=== PATIENT | male | born 1970 | race Caucasian/White ===

== ENCOUNTER 2018-04-13 05:39 | Outpatient (CLI) | payer BC ==
[~2018-04-13] VITALS: Ht 177.8 cm; Wt 113.4 kg
[2018-04-13] MEDS ORDERED: LISI-552 PO (12:32)
[2018-04-13] MEDS ORDERED: FURO20TA4 PO (12:32)
[2018-04-16] MEDS ORDERED: DOCU-143 PO (09:52)
[2018-04-16] MEDS ORDERED: ACHD5005 PO (09:52)
== END 2018-04-13 12:39 | disposition home or self-care (01) ==
LOC: PREOP 05:39
PROVIDERS: ATTEND Surgery
DX: Z01.818 Encounter for other preprocedural examination (principal)

== ENCOUNTER 2018-04-16 07:54 | Day surgery (SDC) | payer BC ==
[~2018-04-16] VITALS: Ht 177.8 cm; Wt 113.4 kg
[~2018-04-16 07:54] MED LIST: FURO20TA4 PO; LISI-552 PO
[2018-04-16] MEDS ORDERED: CLINDAMYCIN 600 MG/50 ML IVPB 50 ML IV ONE (08:00)
--- NOTE | 2018-04-16 08:01 | Progress Note-Pre Operative ---
Pre-Operative Progress Note H&P Reviewed The H&P was reviewed, patient examined and no changes noted. Date Seen by Provider: Apr 16, 2018 Time Seen by Provider: 08:01 Date H&P Reviewed: Apr 16, 2018 Time H&P Reviewed: 08:01 Pre-Operative Diagnosis: symptomatic cholelithiasis MELINA CABRALES DO Apr 16, 2018 08:01
[2018-04-16] MEDS ORDERED: BUPIVACAINE 0.5% 30 ML (SENSORCAINE) VIAL ONE (08:16)
[2018-04-16] MEDS ORDERED: LIDOCAINE 1% INJ 20 ML 20 ML VIAL ONE (08:16)
[2018-04-16] MEDS: LACTATED RINGERS 1,000 ML IV PRN ×2 (08:22→09:45)
[2018-04-16 08:33] LABS: BASOPHILS % (AUTO) 0 % (0-10); EOSINOPHILS # (AUTO) 0.1 10^3/uL (0.0-0.3); EOSINOPHILS % (AUTO) 2 % (0-10); HEMATOCRIT 45 % (40-54); HEMOGLOBIN 15.6 G/DL (13.3-17.7); LYMPHOCYTES # (AUTO) 1.5 X 10^3 (1.0-4.0); LYMPHOCYTES % (AUTO) 27 % (12-44); MEAN CORPUSCULAR HEMOGLOBIN 30 PG (25-34); MEAN CORPUSCULAR HGB CONC 35 G/DL (32-36); MEAN CORPUSCULAR VOLUME 87 FL (80-99); MEAN PLATELET VOLUME 10.5 FL (7.4-10.4); MONOCYTES # (AUTO) 0.5 X 10^3 (0.0-1.0); MONOCYTES % (AUTO) 9 % (0-12); NEUTROPHILS # (AUTO) 3.6 X 10^3 (1.8-7.8); NEUTROPHILS % (AUTO) 62 % (42-75); PLATELET COUNT 148 10^3/uL (130-400); RED BLOOD COUNT 5.16 10^6/uL (4.35-5.85); RED CELL DISTRIBUTION WIDTH 14.4 % (10.0-14.5); WHITE BLOOD COUNT 5.7 10^3/uL (4.3-11.0)
[2018-04-16] MEDS ORDERED: DEXAMETHASONE 10 MG/ML (DECADRON) 1 ML VIAL ONE (08:37)
[2018-04-16] MEDS ORDERED: proPOfol 200 MG/20 ML (DIPRIVAN) VIAL IV ONE (08:37)
[2018-04-16] MEDS ORDERED: ONDANSETRON 4 MG/2 ML (SDV) Z0FRAN ONE (08:37)
[2018-04-16] MEDS ORDERED: LIDOCAINE PF 2% 5 ML (XYLOCAINE) VIAL ONE (08:37)
[2018-04-16] MEDS ORDERED: ROCURONIUM 10 MG/ML 5 ML SYRINGE IV ONE ×2 (08:37→10:02)
[2018-04-16] MEDS ORDERED: MIDAZOLAM 2 MG/2 ML (VERSED) VIAL ONE (08:38)
[2018-04-16] MEDS ORDERED: fentaNYL INJECTION 100 MCG/2 ML AMP ONE (08:38)
[2018-04-16 08:45] VITALS: BP 149/83
[2018-04-16] MEDS ORDERED: SEVOFLURANE (ULTANE) 15 ML INHAL SOLN ONE (09:32)
[2018-04-16] MEDS ORDERED: DOCU-143 PO (09:52)
[2018-04-16] MEDS ORDERED: ACHD5005 PO (09:52)
--- NOTE | 2018-04-16 09:52 | Progress Note-Post Operative ---
Post-Operative Progess Note Surgeon (s)/Senior Software Manager (s) Surgeon MELINA CABRALES DO Senior Software Manager: Dr. Sosa Pre-Operative Diagnosis symptomatic cholelithiasis Post-Operative Diagnosis same Procedure & Operative Findings Date of Procedure 04/16/18 Procedure Performed/Findings lap kushal c ioc Anesthesia Type gen Estimated Blood Loss Estimated blood loss (mL): min Specimens/Packing Specimens Removed gallbladder MELINA CABRALES DO Apr 16, 2018 09:52
--- NOTE | 2018-04-16 09:53 | Discharge Inst-Simple/Standard ---
Discharge Inst-Standard Discharge Medications New, Converted or Re-Newed RX: RX on Chart Patient Instructions/Follow Up Plan of Care/Instructions/FU: 2 weeks Rosales Activity as Tolerated: No Discharge Diet: Regular Diet Other Inst to Patient Follow up Appt: Make appointment for 2 weeks. Instructions: No lifting greater than 10 pounds. No strenuous activity. May shower in 24 hours, no tub bath or soaking. Use incentive spirometer at home as directed. No Smoking Skin/Wound Care: You have special glue over incisions it will fall off on its own. Symptoms to Report: Appetite Changes, Extremity Discoloration, Numbness/Tingling, Swelling Increased , Bleeding Excessive, Eyesight Changes, Pain Increased, Urine Color Change, Constipation(Persistent), Fever over 101 degree F, Pain/Pressure in chest, Urinating Difficulty, Cough Up/Vomit Blood, Heart Beat Irreg/Pounding, Pain/ Pressure in jaw, Vaginal Bleeding Increase, Cramps in feet or legs, Lightheadedness, Pain/Pressure in shoulder, Diarrhea(Persistent), Memory Changes Suddenly, Questions/Concerns, Weight gain consecutive days, Dizziness/ Fainting, Nausea/Vomiting, Shortness of Breath, Weight gain over 2 pounds. If eyes or skin turn yellow notify physician. If questions or concerns contact your physician Or seek help at emergency department. MELINA CABRALES DO Apr 16, 2018 09:53
[2018-04-16] MEDS ORDERED: NEOSTIGMINE 1 MG/ML 5 ML SYRINGE ONE (09:56)
[2018-04-16] MEDS ORDERED: GLYCOPYRROLATE 0.2 MG/ML (ROBINUL) 2 ML VIAL ONE (09:56)
--- NOTE | 2018-04-16 10:00 | Diagnostic Imaging Report ---
INDICATION: Undergoing cholecystectomy. FINDINGS: Multiple intraoperative cholangiogram images are submitted. There is cannulation of the extra hepatic biliary tree. Images demonstrate contrast opacification of the biliary system. Biliary tree is not significantly dilated. There was no persistent filling defect to indicate a retained stone. Flow was present into the duodenum. IMPRESSION: Negative laparoscopic cholangiogram. Dictated by: Dictated on workstation # [id number]
[2018-04-16] MEDS ORDERED: HYDROmorphone 2 MG/ML VIAL (DILAUDID) ONE (10:14)
[2018-04-16] MEDS ORDERED: ONDANSETRON 4 MG/2 ML (SDV) Z0FRAN IVP PRN (10:15)
[2018-04-16] MEDS ORDERED: HYDROmorphone 2 MG/ML VIAL (DILAUDID) IV ONE (10:15)
[2018-04-16 11:00] VITALS: BP 113/75
[2018-04-16] MEDS ORDERED: HYDROcodone/APAP 5 MG/325 MG (LORTAB) TAB ONE (11:19)
[2018-04-16 11:30] VITALS: BP 124/84
[2018-04-16] MEDS ORDERED: HYDROcodone/APAP 5 MG/325 MG (LORTAB) TAB PO ONE (11:30)
[2018-04-16 12:00] VITALS: BP 129/78
--- NOTE | 2018-04-16 12:08 | Anesthesia-General Post-Op ---
General Patient Condition Mental Status/LOC: Same as Preop Cardiovascular: Satisfactory Nausea/Vomiting: Absent Respiratory: Satisfactory Pain: Controlled Complications: Absent Post Op Complications Complications None Follow Up Care/Instructions Patient Instructions None needed. Anesthesia/Patient Condition Patient Condition Patient is doing well, no complaints, stable vital signs, no apparent adverse anesthesia problems. No complications reported per nursing. PARVIN LEDEZMA CRNA Apr 16, 2018 12:08
[2018-04-16 12:15] VITALS: BP 129/78
--- NOTE | 2018-04-16 12:38 | OPERATIVE REPORT ---
DATE OF SERVICE: 04/16/2018 PREOPERATIVE DIAGNOSIS: Symptomatic cholelithiasis. POSTOPERATIVE DIAGNOSIS: Symptomatic cholelithiasis. PROCEDURE: Laparoscopic cholecystectomy with intraoperative cholangiogram. SURGEON: Melina Caba DO ASSEMBLY MANAGER: Dr. Sosa, assisted in retraction, dissection and closure. ANESTHESIA: General. ESTIMATED BLOOD LOSS: Minimal. COMPLICATIONS: None. INDICATIONS: The patient is a 48-year-old male who having abdominal pain and workup consistent with symptomatic cholelithiasis. He understands risks and benefits of procedure and wished to proceed with procedure. Consent was signed in the chart. DESCRIPTION OF PROCEDURE: The patient was taken to the operating suite. He was prepped and draped in sterile fashion. Surgical pause was performed. Neelima technique was used to enter the abdomen just above the umbilicus. Once in the abdomen, the balloon trocar was inserted into the abdomen and pneumoperitoneum was achieved. Under direct visualization of the laparoscope, a 5 mm trocar was then placed in the subxiphoid region and two 5 mm trocars in the right upper quadrant. Gallbladder was grasped, elevated. Cystic duct and cystic artery were then dissected around. Clips were placed on the proximal and distal portion of the cystic artery and the distal portion of the cystic duct. The cystic duct was then partially transected. Arrow catheter was inserted into the duct and cholangiogram was then performed. There were no filling defects. Contrast made its way into the duodenum without difficulty. The Arrow catheter was removed. Clips were placed on the proximal portion of the cystic duct. The cystic duct and cystic artery were then transected. Hook cautery was used to dissect the gallbladder from the gallbladder fossa achieving hemostasis. Once removed, it was placed in an Endobag and removed through 12 mm trocar site. The abdomen was then irrigated and suctioned. Hemostasis was then achieved. The abdomen was then desufflated. The fascia of the 12 mm trocar site was then grasped, elevated. A 0 Vicryl was placed in a [id number] fashion for closure. The skin was then closed using 4-0 Monocryl in subcuticular fashion. The abdomen was washed and dried and Skin Affix was placed over the incision. The patient tolerated procedure well without any complications. He was taken to recovery room in stable condition. Job ID: [id number] DocumentID: [id number] Dictated Date: 04/16/2018 09:56:48 Tape Fastener Machine Operator Date: 04/16/2018 12:37:45 Dictated By: MELINA CABA DO
== END 2018-04-16 12:15 | disposition home or self-care (01) ==
LOC: SDC 07:54
PROVIDERS: ATTEND Surgery
DX: K80.10 Calculus of gallbladder with chronic cholecystitis without obstruction (principal); I10 Essential (primary) hypertension; E11.9 Type 2 diabetes mellitus without complications; Z79.899 Other long term (current) drug therapy; Z11.2 Encounter for screening for other bacterial diseases; Z87.891 Personal history of nicotine dependence
CPT/HCPCS: 36415; 85025; 87081; 88304; 94664